=== PATIENT | male | born 1955 | race Caucasian/White ===

== ENCOUNTER 2022-07-02 14:09 | Emergency (ER) | payer OTHER ==
[2022-07-02 15:13] LABS: #Monocytes 0.9 10x3/uL (0.0-1.1); #Neutrophils 15.8 10x3/uL (1.5-8.4); %Basophils 0.1 % (0.0-2.0); %Eosinophils 0.1 % (0.0-6.0); %Lymphocytes 6.9 % (18.0-47.0); %Neutrophils 87.5 % (40.0-75.0); Hemoglobin 14.1 g/dL (13.5-17.5); Mean Corpuscular HGB CONC 32.4 g/dL (32.0-36.0); Mean Corpuscular Hemoglobin 28.7 pg (27.0-33.0); Mean Corpuscular Volume 88.4 fl (81.2-95.1); Mean Platelet Volume 10.9 fl (7.4-10.4); Platelet Count 394 10x3/uL (150-450); RBC Distribution Width 15.7 % (11.5-14.5); Red Blood Cell (RBC) Count 4.92 10x6/uL (4.32-5.72)
[2022-07-02] MEDS ORDERED: Boostrix 0.5 ML (Tdap) VIAL (>/=7 yrs of age) ONE ×2 (15:18→19:11)
[2022-07-02 15:31] LABS: AST (SGOT) 43 U/L (5-34); Albumin 4.7 g/dL (3.4-4.8); Alkaline Phosphatase 155 U/L (40-110); Anion Gap 17 mmol/L (10-20); BUN (Urea Nitrogen) 19 mg/dL (8.4-25.7); Bilirubin, Total 0.8 mg/dL (0.2-1.2); CK (CPK) 544 U/L (30-200); Calc. Creatinine Clearance 0 mL/min (70-130); Calcium 10.2 mg/dL (7.8-10.44); Carbon Dioxide 26 mmol/L (23-31); Chloride 106 mmol/L (98-107); Estimated GFR 53; Globulin 3.2 g/dL (2.4-3.5); Glucose 110 mg/dL (80-115); Potassium 4.7 mmol/L (3.5-5.1); Protein, Total 7.9 g/dL (5.8-8.1); Sodium 144 mmol/L (136-145)
[2022-07-02 15:32] LABS: ALT (SGPT) 32 U/L (8-55)
[2022-07-02] MEDS ORDERED: Acetaminophen 500 MG TAB ONE (23:44)
[2022-07-02] MEDS ORDERED: Lidocaine 1% (PF) 30 ML VIAL ONE (23:44)
== END 2022-07-02 19:46 | disposition home or self-care (01) ==
LOC: CSHERS 14:09
DX: S02.32XA Fracture of orbital floor, left side, initial encounter for closed fracture (principal); I49.8 Other specified cardiac arrhythmias; R53.1 Weakness; R91.8 Other nonspecific abnormal finding of lung field; S80.212A Abrasion, left knee, initial encounter; S80.211A Abrasion, right knee, initial encounter; E78.00 Pure hypercholesterolemia, unspecified; I10 Essential (primary) hypertension; R29.6 Repeated falls; W19.XXXA Unspecified fall, initial encounter
CPT/HCPCS: 70450; 70486; 71045; 72125; 80053; 82550; 84443; 84484; 85025; 90471; 90715; 93005; 94760; J2001

== ENCOUNTER 2022-11-09 20:27 | Emergency (ER) | payer OTHER ==
[2022-11-09 21:26] LABS: #Eosinphils 0.1 10x3/uL (0.0-0.5); #Neutrophils 15.7 10x3/uL (1.5-8.4); %Basophils 0.2 % (0.0-2.0); %Eosinophils 0.5 % (0.0-6.0); %Lymphocytes 8.3 % (18.0-47.0); %Monocytes 10.1 % (0.0-10.0); %Neutrophils 80.4 % (40.0-75.0); Hemoglobin 13.9 g/dL (13.5-17.5); Mean Corpuscular HGB CONC 33.1 g/dL (32.0-36.0); Mean Corpuscular Hemoglobin 29.3 pg (27.0-33.0); Mean Corpuscular Volume 88.6 fl (81.2-95.1); Mean Platelet Volume 11.4 fl (7.4-10.4); Platelet Count 316 10x3/uL (150-450); RBC Distribution Width 15.3 % (11.5-14.5); Red Blood Cell (RBC) Count 4.74 10x6/uL (4.32-5.72); White Blood Cell (WBC) Count 19.5 10x3/uL (3.5-10.5)
[2022-11-09 21:42] LABS: ALT (SGPT) 35 U/L (8-55); AST (SGOT) 33 U/L (5-34); Alkaline Phosphatase 167 U/L (40-110); Anion Gap 14 mmol/L (10-20); BUN (Urea Nitrogen) 13 mg/dL (8.4-25.7); Bilirubin, Total 1.3 mg/dL (0.2-1.2); CK (CPK) 15 U/L (30-200); Calc. Creatinine Clearance 0 mL/min (70-130); Calcium 10.2 mg/dL (7.8-10.44); Carbon Dioxide 25 mmol/L (23-31); Chloride 107 mmol/L (98-107); Estimated GFR 63; Globulin 3.5 g/dL (2.4-3.5); Glucose 132 mg/dL (80-115); Potassium 3.7 mmol/L (3.5-5.1); Protein, Total 7.5 g/dL (5.8-8.1); Sodium 142 mmol/L (136-145)
[2022-11-09] MEDS ORDERED: Tranexamic Acid 1,000 MG/10 ML VIAL ONE ×2 (21:52→22:10)
== END 2022-11-09 22:36 ==
LOC: CSHERS 20:27
DX: I62.00 Nontraumatic subdural hemorrhage, unspecified (principal); R53.1 Weakness; D72.829 Elevated white blood cell count, unspecified; I10 Essential (primary) hypertension; E78.5 Hyperlipidemia, unspecified
CPT/HCPCS: 70450; 71045; 80053; 82550; 83605; 84443; 84484; 85025; 93005; 96365

== ENCOUNTER 2022-12-20 13:13 | Outpatient (CLI) | payer OTHER | END 2022-12-20 13:14 | disposition home or self-care (01) | LOC: CSHCT 13:13 | PROVIDERS: ATTEND Physician Assistant Surgical | DX: I62.00 Nontraumatic subdural hemorrhage, unspecified (principal); G93.40 Encephalopathy, unspecified | CPT/HCPCS: 70450 ==